=== PATIENT | male | born 1945 | race Caucasian/White ===

== ENCOUNTER 2018-02-03 13:24 | Inpatient (IN) | payer MEDICARE, OTHER ==
[~2018-02-03] VITALS: Ht 170.2 cm; Wt 68.0 kg
[2018-02-03] MEDS ORDERED: normal saline 1000ML IV soln IVB ONE (13:45)
[2018-02-03] MEDS ORDERED: pantoprazole 40 MG vial IV ONE (13:50)
[2018-02-03 14:28] LABS: OCCULT BLOOD STOOL POSITIVE (Neg)
[2018-02-03 14:32] LABS: ALANINE AMINOTRANSFERASE 37 U/L (12-78); ALBUMIN 2.8 G/DL (3.4-5.0); ALKALINE PHOSPHATASE 77 IU/L (46-116); ANION GAP 9 (8-16); ASPARTATE AMINO TRANSFERASE 28 U/L (10-37); BASOPHILS % (AUTO) 0.3 % (0-1); BLOOD UREA NITROGEN 57 MG/DL (7-18); BUN/CREATININE RATIO 58.8 (5.4-32.0); CALCIUM 7.9 MG/DL (8.5-10.1); CHLORIDE 109 MMOL/L (99-107); CREATININE 0.97 MG/DL (0.60-1.10); EOSINOPHILS % (AUTO) 0.1 % (0-6); GLUCOSE 93 MG/DL (70-104); HEMATOCRIT 27.1 % (42.0-52.0); HEMOGLOBIN 9.1 g/dl (14.0-17.9); LYMPHOCYTES # (AUTO) 0.7 X10'3 (1.1-4.8); LYMPHOCYTES % (AUTO) 10.3 % (21-51); MEAN CORPUSCULAR HEMOGLOBIN 31.3 PG (27.0-31.0); MEAN CORPUSCULAR HGB CONC 33.7 % (33.0-36.5); MEAN CORPUSCULAR VOLUME 92.9 FL (78-98); MEAN PLATELET VOLUME 7.5 FL (7.4-10.4); MONOCYTES # (AUTO) 0.2 X10'3 (0-0.9); MONOCYTES % (AUTO) 3.1 % (2-12); NEUTROPHILS # (AUTO) 5.7 X10'3 (1.8-7.7); NEUTROPHILS % (AUTO) 86.2 % (42-75); PLATELET COUNT 100 X10'3 (140-440); POTASSIUM 4.2 MMOL/L (3.5-5.1); RED BLOOD COUNT 2.92 X10'6 (4.70-6.10); RED CELL DISTRIBUTION WIDTH 16.3 % (11.5-14.5); SODIUM 144 MMOL/L (135-145); TOTAL PROTEIN 5.6 G/DL (6.4-8.2); WHITE BLOOD COUNT 6.6 X10'3 (4.5-11.0); eGFR 76 ML/MIN
[2018-02-03] MEDS ORDERED: NO HOME MEDS (14:48)
[2018-02-03] MEDS ORDERED: magnesium Cl slow-release 64mg tablet PO PRN (15:20)
[2018-02-03] MEDS ORDERED: magnesium 1gm/100ml D5W IVPB 100 ML IV PRN (15:20)
[2018-02-03] MEDS ORDERED: potassium Cl 40MEQ/NS 500ml 500 ML IV PRN ×2 (15:20)
[2018-02-03] MEDS ORDERED: mag hydrox/Alum hydrox/simeth 30ml oral suspension PO PRN (15:20)
[2018-02-03] MEDS ORDERED: potassium Cl 20 mEq SR tablet PO PRN ×2 (15:20)
[2018-02-03] MEDS ORDERED: magnesium hydroxide 30ml (MOM) UD suspension PO PRN (15:20)
[2018-02-03] MEDS ORDERED: magnesium 4gm in 100ml NS 100 ML IV PRN (15:20)
[2018-02-03] MEDS ORDERED: acetaminophen 325mg tablet PO PRN ×2 (15:20)
[2018-02-03] MEDS: pantoprazole 40MG/NS 100ML BAG 100 ML IV SCH ×2 (15:29→20:19)
[2018-02-03] MEDS: normal saline 1000ml 1,000 ML IV SCH ×2 (16:15→20:23)
[2018-02-03 16:42] LABS: INR 1.3 INR; PARTIAL THROMBOPLASTIN TIME 26 SECONDS (22-32); PROTHROMBIN TIME 13.2 SECONDS (9.0-12.0)
[2018-02-03 19:00] VITALS: BP 100/59
[2018-02-03] MEDS: temazepam 15mg capsule PO PRN (20:41)
[2018-02-04] VITALS (10 sets, daily range): BP systolic 105–149; BP diastolic 51–74
[2018-02-04] MEDS: pantoprazole 40MG/NS 100ML BAG 100 ML IV SCH ×4 (01:00→15:56)
[2018-02-04 02:25] LABS: HEMATOCRIT 23.2 % (42.0-52.0); HEMOGLOBIN 7.8 g/dl (14.0-17.9); MEAN CORPUSCULAR HEMOGLOBIN 31.2 PG (27.0-31.0); MEAN CORPUSCULAR HGB CONC 33.4 % (33.0-36.5); MEAN CORPUSCULAR VOLUME 93.5 FL (78-98); MEAN PLATELET VOLUME 7.4 FL (7.4-10.4); PLATELET COUNT 92 X10'3 (140-440); RED BLOOD COUNT 2.48 X10'6 (4.70-6.10); RED CELL DISTRIBUTION WIDTH 16.5 % (11.5-14.5); WHITE BLOOD COUNT 5.1 X10'3 (4.5-11.0)
[2018-02-04 02:34] LABS: INR 1.3 INR; PARTIAL THROMBOPLASTIN TIME 26 SECONDS (22-32)
[2018-02-04 02:36] LABS: ALBUMIN 2.7 G/DL (3.4-5.0); ANION GAP 8 (8-16); BLOOD UREA NITROGEN 36 MG/DL (7-18); BUN/CREATININE RATIO 37.1 (5.4-32.0); CALCIUM 7.8 MG/DL (8.5-10.1); CHLORIDE 110 MMOL/L (99-107); CREATININE 0.97 MG/DL (0.60-1.10); GLUCOSE 82 MG/DL (70-104); MAGNESIUM 1.8 MG/DL (1.5-2.4); POTASSIUM 3.8 MMOL/L (3.5-5.1); SODIUM 143 MMOL/L (135-145); TOTAL CARBON DIOXIDE 25.5 MMOL/L (24-32); eGFR 76 ML/MIN
[2018-02-04] MEDS: K and/or MAG REPLACEMENT MC SCH (08:00)
[2018-02-04] MEDS ORDERED: LORazepam 2 mg/ml vial IV PRN (10:55)
[2018-02-04] MEDS ORDERED: MIDAZolam 5mg/5ml vial ONE (16:22)
[2018-02-04] MEDS ORDERED: LIDOcaine Viscous 15ml cup ONE (16:22)
[2018-02-04] MEDS ORDERED: fentaNYL/PF 50MCG/1 ML 2ML syringe ONE (16:22)
[2018-02-04] MEDS: temazepam 15mg capsule PO PRN (20:29)
[2018-02-04] MEDS: pantoprazole 40mg Tablet.DR PO SCH (20:29)
[2018-02-04] MEDS: ondansetron/PF 4mg/2ml inj IV PRN (23:37)
[2018-02-05] MEDS: morphine 2 MG/ML inj. syringe IV PRN ×5 (00:24→19:35)
[2018-02-05 05:26] LABS: HEMATOCRIT 24.8 % (42.0-52.0); HEMOGLOBIN 8.4 g/dl (14.0-17.9); MEAN CORPUSCULAR HEMOGLOBIN 31.6 PG (27.0-31.0); MEAN CORPUSCULAR HGB CONC 33.8 % (33.0-36.5); MEAN CORPUSCULAR VOLUME 93.7 FL (78-98); MEAN PLATELET VOLUME 7.5 FL (7.4-10.4); PLATELET COUNT 97 X10'3 (140-440); RED BLOOD COUNT 2.65 X10'6 (4.70-6.10); RED CELL DISTRIBUTION WIDTH 17.1 % (11.5-14.5); WHITE BLOOD COUNT 5.9 X10'3 (4.5-11.0)
[2018-02-05 05:50] LABS: INR 1.2 INR; PARTIAL THROMBOPLASTIN TIME 27 SECONDS (22-32)
[2018-02-05 05:54] LABS: ALBUMIN 3.3 G/DL (3.4-5.0); ANION GAP 9 (8-16); BLOOD UREA NITROGEN 16 MG/DL (7-18); BUN/CREATININE RATIO 16.5 (5.4-32.0); CALCIUM 8.1 MG/DL (8.5-10.1); CHLORIDE 105 MMOL/L (99-107); CREATININE 0.97 MG/DL (0.60-1.10); GLUCOSE 122 MG/DL (70-104); MAGNESIUM 1.6 MG/DL (1.5-2.4); POTASSIUM 3.8 MMOL/L (3.5-5.1); SODIUM 139 MMOL/L (135-145); TOTAL CARBON DIOXIDE 24.9 MMOL/L (24-32); eGFR 76 ML/MIN
[2018-02-05] MEDS: K and/or MAG REPLACEMENT MC SCH (07:24)
[2018-02-05 08:03] VITALS: BP 117/56
[2018-02-05] MEDS: pantoprazole 40mg Tablet.DR PO SCH ×2 (08:14→19:34)
[2018-02-05] MEDS: carvedilol 6.25mg tablet PO SCH (08:14)
[2018-02-05 09:36] VITALS: BP 117/56
[2018-02-05 11:00] VITALS: BP 98/53
[2018-02-05 13:20] VITALS: BP 118/53
[2018-02-05] MEDS: ondansetron/PF 4mg/2ml inj IV PRN ×2 (14:48→19:34)
[2018-02-05] MEDS: normal saline 1000ml 1,000 ML IV SCH (15:18)
[2018-02-05 20:00] VITALS: BP 139/68
[2018-02-06] VITALS: BP 124/49
[2018-02-06 05:03] LABS: HEMATOCRIT 26.1 % (42.0-52.0); HEMOGLOBIN 8.8 g/dl (14.0-17.9); MEAN CORPUSCULAR HEMOGLOBIN 31.6 PG (27.0-31.0); MEAN CORPUSCULAR HGB CONC 33.7 % (33.0-36.5); MEAN CORPUSCULAR VOLUME 93.8 FL (78-98); MEAN PLATELET VOLUME 7.6 FL (7.4-10.4); PLATELET COUNT 108 X10'3 (140-440); RED BLOOD COUNT 2.79 X10'6 (4.70-6.10); RED CELL DISTRIBUTION WIDTH 16.8 % (11.5-14.5); WHITE BLOOD COUNT 6.5 X10'3 (4.5-11.0)
[2018-02-06 05:24] LABS: ANION GAP 8 (8-16); BLOOD UREA NITROGEN 13 MG/DL (7-18); BUN/CREATININE RATIO 13.8 (5.4-32.0); CALCIUM 7.9 MG/DL (8.5-10.1); CHLORIDE 104 MMOL/L (99-107); CREATININE 0.94 MG/DL (0.60-1.10); GLUCOSE 116 MG/DL (70-104); MAGNESIUM 1.8 MG/DL (1.5-2.4); POTASSIUM 3.7 MMOL/L (3.5-5.1); SODIUM 139 MMOL/L (135-145); TOTAL CARBON DIOXIDE 26.9 MMOL/L (24-32); eGFR 79 ML/MIN
[2018-02-06 05:46] LABS: INR 1.1 INR; PARTIAL THROMBOPLASTIN TIME 27 SECONDS (22-32); PROTHROMBIN TIME 11.7 SECONDS (9.0-12.0)
[2018-02-06 07:14] VITALS: BP 93/54
[2018-02-06] MEDS: carvedilol 6.25mg tablet PO SCH (08:00)
[2018-02-06] MEDS: K and/or MAG REPLACEMENT MC SCH (08:00)
[2018-02-06] MEDS ORDERED: PANT40TA4 PO (08:14)
[2018-02-06] MEDS ORDERED: CARV6.253 PO (08:15)
[2018-02-06] MEDS: pantoprazole 40mg Tablet.DR PO SCH (08:18)
[2018-02-06] MEDS ORDERED: CARV3.122 PO (11:55)
[2018-02-08] MEDS ORDERED: carvedilol 6.25mg tablet PO SCH (08:00)
== END 2018-02-06 12:27 | disposition home or self-care (01) | DRG 432 ==
LOC: ER 13:25 → ED HOLD 15:18 → SUR 3N 17:55
PROVIDERS: ADMIT Family Medicine; ATTEND Internal Medicine
PROC: 06L38CZ Occlusion of Esophageal Vein with Extraluminal Device, Via Natural or Artificial Opening Endoscopic (ICD-10-PCS; principal; 2018-02-04)
DX: K74.60 Unspecified cirrhosis of liver (principal); I85.11 Secondary esophageal varices with bleeding; K76.6 Portal hypertension; K31.89 Other diseases of stomach and duodenum; K29.70 Gastritis, unspecified, without bleeding; F41.9 Anxiety disorder, unspecified; R45.1 Restlessness and agitation; R79.89 Other specified abnormal findings of blood chemistry; D50.0 Iron deficiency anemia secondary to blood loss (chronic); K29.80 Duodenitis without bleeding; B18.2 Chronic viral hepatitis C; I95.9 Hypotension, unspecified; F17.210 Nicotine dependence, cigarettes, uncomplicated; F12.90 Cannabis use, unspecified, uncomplicated; Z79.899 Other long term (current) drug therapy; Z87.11 Personal history of peptic ulcer disease; Z71.6 Tobacco abuse counseling
CPT/HCPCS: 36415; 43244; 80048; 80053; 82272; 83735; 84484; 85025; 85027; 85610; 85730; 86885; 86900; 86901; 87070; 96361; 96374; 99152; 99285; C9113; J2060; J2250; J2270; J2405; J3010; J7030